=== PATIENT | female | born 1990 | race African-American/Black ===

== ENCOUNTER 2020-06-10 09:35 | Inpatient (IN) | payer BC ==
[~2020-06-10 09:35] MED LIST: BUTORPHANOL TARTRATE 2 MG/ML VIAL IVPB ONE; PROMETHAZINE HCL 25 MG/1 ML VIAL IVPB ONE
[2020-06-10] MEDS: ELECTROLYTE-148 SOLN 1,000 ML IV SCH ×2 (09:35→13:10)
[2020-06-10] MEDS ORDERED: AMPICILLIN - 2 GM in SODIUM CHLORIDE 100 ML IVPB ONE (10:00)
[2020-06-10] MEDS ORDERED: AMPICILLIN SODIUM 2 GM VIAL ONE (10:10)
[2020-06-10] MEDS ORDERED: SODIUM CHLORIDE 100 ML IVPB ONE (10:10)
[2020-06-10 10:30] LABS: BASO % 0.5 % (0-2.0); EOS % 0.6 % (0-4.5); HEMATOCRIT 39.6 % (32.4-45.2); HEMOGLOBIN 13.5 GM/dL (10.7-15.3); LYMPH % 14.4 % (8-40); MCH 30.2 pg (25.7-33.7); MEAN CELL VOLUME 88.8 fl (80-96); MEAN PLT VOLUME 10.3 fl (7.5-11.1); MONO % 4.4 % (3.8-10.2); NEUT % 80.1 % (42.8-82.8); PLATELET COUNT 219 K/MM3 (134-434); RBC 4.46 M/mm3 (3.60-5.2); RDW 14.7 % (11.6-15.6); WHITE BLOOD COUNT 9.2 K/mm3 (4.0-10.0)
[2020-06-10 10:36] LABS: INR 0.94 (0.83-1.09); PROTHROMBIN TIME (PATIENT) 11.4 SEC (9.7-13.0)
[2020-06-10 10:39] LABS: ACTIVATED PTT 29.2 SECONDS (25.2-36.5)
[2020-06-10 10:42] VITALS: BMI 31.8
[2020-06-10 10:56] LABS: BLOOD UREA NITROGEN 4.9 mg/dL (7-18); CALCIUM 9.1 mg/dL (8.5-10.1); CREATININE 0.8 mg/dL (0.55-1.3); POTASSIUM 3.9 mmol/L (3.5-5.1)
[2020-06-10] MEDS ORDERED: PROMETHAZINE HCL 25 MG/1 ML VIAL ONE (11:20)
[2020-06-10] MEDS ORDERED: BUTORPHANOL TARTRATE 2 MG/ML VIAL ONE (11:20)
--- NOTE | 2020-06-10 12:49 | PN ---
Progress Note (short form) - Note Progress Note: First baby, in labor. Patient has good variability but 2 episodes of bradycardia. On examination she is 3 cm, 50% effaced, -2. Category 2. Observe tracing. Good variability is reassuring. Do not start Pitocin. Attending notified by the RN.
[2020-06-10] MEDS ORDERED: ONDANSETRON 4 MG/2 ML VIAL IVPUSH PRN (13:17)
[2020-06-10] MEDS ORDERED: CITRIC ACID/SODIUM CITRATE 30 ML UNIT-DOSE CUP PO ONE (13:21)
[2020-06-10] MEDS ORDERED: ELECTROLYTE-148 SOLN 500 ML IV ONE (13:21)
[2020-06-10] MEDS ORDERED: METHYLERGONOVINE MALEATE 0.2 MG/1 ML AMP IM PRN (13:22)
[2020-06-10] MEDS ORDERED: SENNOSIDES/DOCUSATE COMBO (SENNA PLUS) TABLET (UD) PO PRN (13:22)
[2020-06-10] MEDS ORDERED: oxyCODONE HCL 5 MG TABLET PO PRN (13:22)
--- NOTE | 2020-06-10 13:26 | HP ---
Past Medical History - Admission Chief Complaint: labor pain History Source: Patient Limitations to Obtaining History: No Limitations - Past Medical History [facility]: No: Alzheimer's, CVA, Dementia, Migraine, Multiple Sclerosis, Peripheral Neuropathy, Parkinson's, Seizure, Syncope, TIA, Vertigo, Other Cardiovascular: No: AFIB, Aneurysm, Aortic Insufficiency, Aortic Stenosis, CAD, CHF, Deep Vein Thrombosis, HTN, Hyperlipdemia, TN, Mitral Insufficiency, Mitral Stenosis, Murmur, Pulmonary Hypertension, Other Pulmonary: No: Asthma, Bronchitis, Cancer, COPD, O2 Dependent, Pneumonia, Pr eviously Intubated, Pulmonary Embolus, Pulmonary Fibrosis, Sleep Apnea, Other Gastrointestinal: No: Ascites, Cancer, Constipation, Crohn's Disease, Diverticulitis, Diverticulosis, Esophageal Varices, Gastritis, GERD, GI Bleed, Hemorrhoids, Hiatal Hernia, Inflamatory Bowel Disease, Irritable Bowel Disease, Pancreatitis, Peptic Ulcer Disease, Ulcerative Colitis, Other Hepatobiliary: No: Cirrhosis, Cholelithiasis, Cholecystitis, Choledocholithiasis, Hepatitis A, Hepatitis B, Hepatitis C, Other Renal/: No: Renal Failure, Renal Inusuff, BPH, Cancer, Hematuria, Hemodialysis, Neurogenic Bladder, Renal Calculi, UTI, Other Reproductive: No: Ectopic , Endometriosis, Fibroids, PID, Polycystic Ovary Syndrome, Postmenopausal, Other ...: 1 ...Para: 0 ...EDC by Xiomara: 06/07/20 Heme/Onc: No: Anemia, B12 Deficiency, Bleeding Disorder, Cancer, Current Chemotherapy, Current Radiation Therapy, Hemochromatosis, Hypercoaguable State, Myeloproliferative Synd, Sickle Cell Disease, Sickle Cell Trait, Thrombocytopenia, Other Infectious Disease: No: AIDS, C-Diff, Herpes Zoster, HIV, MRSA, STD's, Tuberculosis, VREF, Other Psych: No: Addictions, Anxiety, Bipolar, Depression, Panic, Psychosis, Schizophrenia, Other Musculoskeletal: No: Bursitis, Chronic low back pain, Hemiparesis, Hemiplegia, Osteoarthritis, Paraplegia, Other Rheumatology: No: Fibromyalgia, Gout, Lupus, Rheumatoid Arthritis, Sarcoidosis, Vasculitis, Other ENT: No: Allergic Rhinitis, Sinusitis, Other Endocrine: No: Ariel's Disease, Daron's Disease, Diabetes Insipidus, Diabetes Mellitus, Hyperparathyroidism, Hyperthyroidism, Hypothyroidism, Osteopenia, SIADH, Other Dermatology: No: Basal Cell, Cellulitis, Eczema, Melanoma, Psoriasis, Squamous Cell, Other - Past Surgical History Past Surgical History: No: None, AAA Repair, AICD, Amputation, Appendectomy, Arthrosocopy, AV Fistula/Graft, Bariatric Surgery, Breast Biopsy, Bypass, CABG, Carotid Endarterectomy, Cataract Removal, Cholecystectomy, Colectomy, Colonoscopy, Colostomy, Craniotomy, , Cystectomy, Hernia Repair, Hysterectomy, Ileal Conduit, Ileosotomy, Joint Replacement, Kidney Transplant, Laminectomy, Liver Transplant, Mastectomy, Nephrectomy, Oopherectomy, Orchiectomy, Permanent Pacemaker, Prostatectomy, Splenectomy, Stent, Thor acotomy, TURP, Tonsillectomy, Tubal Ligation, Upper Endoscopy, Valve Replacement, Vasectomy, Vein Stripping/Ligation Hx Myomectomy: No Hx Transabdominal Cerclage: No - Advance Directives Advance Directives: Yes: Living Will - Smoking History Smoking history: Never smoked Have you smoked in the past 12 months: No - Alcohol/Substance Use Hx Alcohol Use: No History of Substance Use: reports: None - Social History Usual Living Arrangement: Yes: With Significant Other Do you think of yourself as: Straight/Heterosexual ADL: Independent History of Recent Travel: No Home Medications - Allergies Allergies/Adverse Reactions: Allergies Allergy/AdvReac Type Severity Reaction Status Date / Time No Known Allergies Allergy Verified 06/10/20 10:19 - Home Medications Home Medications: Ambulatory Orders Tablet 1 tab PO DAILY 06/10/20 Family Medical History Family History: Denies Review of Systems - Review of Systems Constitutional: reports: No Symptoms Eyes: reports: No Symptoms HENT: reports: No Symptoms Neck: reports: No Symptoms Cardiovascular: reports: No Symptoms Respiratory: reports: No Symptoms Gastrointestinal: reports: No Symptoms Genitourinary: reports: No Symptoms Breasts: reports: No Symptoms Reported Musculoskeletal: reports: No Symptoms Integumentary: reports: No Symptoms Neurological: reports: No Symptoms Endocrine: reports: No Symptoms Hematology/Lymphatic: reports: No Symptoms Psychiatric: reports: No Symptoms Physical Exam - Maternity Vital Signs: Vital Signs Temperature 98.3 F 06/10/20 09:35 Pulse Rate 86 06/10/20 11:54 Respiratory Rate 20 06/10/20 11:54 Blood Pressure 133/88 06/10/20 11:54 O2 Sat by Pulse Oximetry (%) Constitutional: Yes: Well Nourished, No Distress, Calm Eyes: Yes: WNL, Conjunctiva Clear, EOM Intact HENT: Yes: WNL, Atraumatic, Normocephalic Neck: Yes: WNL, Supple, Trachea Midline Cardiovascular: Yes: WNL, Regular Rate and Rhythm Lungs: Clear to auscultation Breast(s): Yes: WNL - Abdominal Exam/OB Number of Fetuses: Single Presentation: Vertex Contractions: Yes Regularity: Regular Intensity: Mod/Strong Monitor Mode: External Heart Rate (range): 150 Heart Rate Location: [facility] Accelerations: Uniform Decelerations: Prolonged - Vaginal Exam/OB Vaginal Bleeding: No Speculum Exam: No Dilatation (cm): 2 Effacement (%): 70 Amniotic Membrane Status: Intact Meconium: Light Presentation: Vertex/Position Station: -3 - Physical Exam Musculoskeletal: Yes: WNL Extremities: Yes: WNL Edema: Yes Integumentary: Yes: WNL Deep Tendon Reflex Grade: Normal +2 ...Motor Strength: WNL Psychiatric: Yes: WNL, Alert, Oriented - Labs Lab Results: CBC, BMP 06/10/20 10:15 06/10/20 10:15 Assessment/Plan for labor
[2020-06-10] MEDS ORDERED: morphine SULFATE/PF 0.5 MG/ML (2cc Syringe - QUVA) ONE (13:28)
[2020-06-10] MEDS ORDERED: ELECTROLYTE-148 SOLN 1,000 ML IV SCH (13:30)
[2020-06-10] MEDS ORDERED: PHENYLEPHRINE HCL 10 MG/1 ML SINGLE DOSE VIAL ONE (13:44)
[2020-06-10] MEDS ORDERED: ceFAZolin SODIUM 1 GM VIAL ONE (13:46)
[2020-06-10] MEDS ORDERED: AMPICILLIN - 1 GM in SODIUM CHLORIDE 100 ML IVPB SCH (14:00)
[2020-06-10] MEDS: OXYTOCIN 20 UNITS in 0.9% NS 20 UNIT/1,000 ML INFUS.BAG IV SCH (14:35)
--- NOTE | 2020-06-10 15:31 | PN ---
Progress Note (short form) - Note Progress Note: I assisted Dr. Gamboa at primary section for the entirety of the case.
[2020-06-10] MEDS ORDERED: IBUPROFEN 800 MG/8 ML IJ IVPB ONE (19:16)
[2020-06-10] MEDS: IBUPROFEN 800 MG/8 ML IJ IVPB PRN (19:25)
[2020-06-10] MEDS ORDERED: OXYTOCIN 20 UNITS in 0.9% NS 20 UNIT/1,000 ML INFUS.BAG IV ONE (21:13)
[2020-06-11] MEDS: IBUPROFEN 800 MG/8 ML IJ IVPB PRN (02:32)
[2020-06-11 08:05] LABS: BASO % 0.3 % (0-2.0); EOS % 0.5 % (0-4.5); HEMATOCRIT 34.3 % (32.4-45.2); HEMOGLOBIN 11.6 GM/dL (10.7-15.3); LYMPH % 14.3 % (8-40); MCH 29.8 pg (25.7-33.7); MCHC 33.7 g/dl (32.0-36.0); MEAN CELL VOLUME 88.4 fl (80-96); MEAN PLT VOLUME 10.1 fl (7.5-11.1); MONO % 6.3 % (3.8-10.2); NEUT % 78.6 % (42.8-82.8); PLATELET COUNT 190 K/MM3 (134-434); RBC 3.88 M/mm3 (3.60-5.2); RDW 14.7 % (11.6-15.6); WHITE BLOOD COUNT 10.9 K/mm3 (4.0-10.0)
[2020-06-11] MEDS: PRENATAL VITAMINS W/ FOLIC ACID TABLET (FP) PO SCH (09:32)
[2020-06-11] MEDS: ACETAMINOPHEN 325 MG TABLET (FP) PO PRN ×2 (11:35→19:17)
[2020-06-11] MEDS: IBUPROFEN 600 MG TABLET (FP) PO PRN ×2 (11:37→19:18)
[2020-06-11] MEDS: SIMETHICONE 80 MG TAB.CHEW (FP) PO PRN ×2 (11:37→19:19)
[2020-06-11] MEDS: oxyCODONE HCL 5 MG TABLET PO PRN (12:13)
[2020-06-11] MEDS ORDERED: BISACODYL 10 MG SUPP.RECT RC PRN (13:22)
[2020-06-11] MEDS: OXYTOCIN 20 UNITS in 0.9% NS 20 UNIT/1,000 ML INFUS.BAG IV SCH (14:57)
--- NOTE | 2020-06-11 17:16 | OP ---
Operative Note - Note: Operative Date: 06/10/20 Pre-Operative Diagnosis: non reassuring fht, Operation: primary lt c s Findings: mod meconium Post-Operative Diagnosis: Same as Pre-op Surgeon: Ronnell Gamboa Senior Software Project Manager: Jet Gonzalez Anesthesiologist/WOMEN SPECIALIST: Andre French Anesthesia: Spinal Estimated Blood Loss (mls): 500 (no complications ) Operative Report Dictated: Yes
[2020-06-12] MEDS: IBUPROFEN 600 MG TABLET (FP) PO PRN ×3 (03:11→14:53)
[2020-06-12] MEDS: oxyCODONE HCL 5 MG TABLET PO PRN ×2 (03:12→07:40)
[2020-06-12] MEDS: SIMETHICONE 80 MG TAB.CHEW (FP) PO PRN (07:41)
[2020-06-12] MEDS: PRENATAL VITAMINS W/ FOLIC ACID TABLET (FP) PO SCH (10:29)
[2020-06-12 11:19] VITALS: BP 132/88; PULSE 82; TEMP 98.4
--- NOTE | 2020-06-12 11:59 | OP ---
DATE OF OPERATION: 06/10/2020 PREOPERATIVE DIAGNOSIS: Nonreassuring heart rate tracing. POSTOPERATIVE DIAGNOSIS: Moderate meconium. PROCEDURE: Primary low transverse section. SURGEON: Sasha Gamboa MD KST OPERATOR: Jet Gonzalez MD ANESTHESIOLOGIST: ANESTHESIA: Spinal anesthesia. INDICATION: This is a 29-year-old female patient, 40 weeks and 3 days , came into the hospital in labor and carter every 3-5 minutes, and patient out of control in labor, and the patient was only 1-2 cm, so patient was admitted, and the patient was given IV hydration. After hydration, patient was given IV Stadol medication. Then after about 2 hours later patient started having decelerations. After deceleration and the patient recovered; however, patient had another deceleration, then the deceleration recovered. This was variable deceleration, and third one would be a prolonged deceleration of more than 2 minutes. Patient at this time was resuscitated again and baby heartbeat recovered. The patient's cervix at this time was checked and was still 2-3 cm opening only, head still very high, -3 position, so decision was made again at this time for the patient for because of prolonged deceleration and remote from delivery, and patient's heartbeat and variability is minimum variability, so decision was made. So patient was prepped for the . Patient was taken to OR for primary low transverse section. DESCRIPTION OF PROCEDURE: Patient was placed on operating table in supine position after spinal anesthesia was obtained. The patient's abdomen and pelvis were prepped and draped in the usual sterile manner. Pfannenstiel incision was made. Incision was made through skin and subcutaneous tissue into the fascia and nicked in the midline. Fascia extended bilaterally. Intraperitoneal cavity was entered, and no bladder flap was created. Low transverse segment was entered, baby delivered from LOT position. There was moderate to thick meconium. The baby was handed over to clin nurse spec. After umbilical cord doubly clamped and cut, placenta was removed. Uterus closed in single layer, first layer interlocking Vicryl sutures. Good hemostasis. Both gutters cleaned. Both ovaries, fallopian tubes, and uterus were within normal limits. No complication. Tolerated the procedure well, draining clear urine. Blood loss was about 500 mL. The peritoneum was closed, fascia was closed. SASHAMD ODELL FLOREZ/[id number]
--- NOTE | 2020-06-12 14:53 | PN ---
Post Progress Note Post Day: 2 Type of Delivery: Primary C/S Vital Signs: Vital Signs Temperature 98.4 F 06/12/20 10:00 Pulse Rate 82 06/12/20 10:00 Respiratory Rate 18 06/12/20 10:00 Blood Pressure 132/88 06/12/20 10:00 O2 Sat by Pulse Oximetry (%) 99 06/12/20 10:00 Breast Exam: Yes: Soft Uterus: Yes: Fundus Firm, Fundus below umbilicus, Non-tender Incision: Yes: Dressing dry and intact, Sutures intact Abdomen/GI: Yes: Abdomen soft, Passing flatus, Tolerating PO Lochia: Yes: Serosa Lochia, amount: Small Extremities: Yes: Calves non-tender Perineum: Yes: Intact Activity: Ambulating (dc pt home tomorrow ) - Labs Labs: CBC WBC 10.9 K/mm3 (4.0-10.0) H 06/11/20 07:32 RBC 3.88 M/mm3 (3.60-5.2) 06/11/20 07:32 Hgb 11.6 GM/dL (10.7-15.3) 06/11/20 07:32 Hct 34.3 % (32.4-45.2) 06/11/20 07:32 MCV 88.4 fl (80-96) 06/11/20 07:32 MCH 29.8 pg (25.7-33.7) 06/11/20 07:32 MCHC 33.7 g/dl (32.0-36.0) 06/11/20 07:32 RDW 14.7 % (11.6-15.6) 06/11/20 07:32 Plt Count 190 K/MM3 (134-434) 06/11/20 07:32 MPV 10.1 fl (7.5-11.1) 06/11/20 07:32 Absolute Neuts (auto) 8.6 K/mm3 (1.5-8.0) H 06/11/20 07:32 Neutrophils % 78.6 % (42.8-82.8) 06/11/20 07:32 Lymphocytes % 14.3 % (8-40) 06/11/20 07:32 Monocytes % 6.3 % (3.8-10.2) 06/11/20 07:32 Eosinophils % 0.5 % (0-4.5) 06/11/20 07:32 Basophils % 0.3 % (0-2.0) 06/11/20 07:32 Nucleated RBC % 0 % (0-0) 06/11/20 07:32
[2020-06-12] MEDS: ACETAMINOPHEN 325 MG TABLET (FP) PO PRN (14:54)
--- NOTE | 2020-06-12 14:55 | DS ---
Physical Exam-BILINGUAL HR GENERALIST Vital Signs: Vital Signs Temperature 98.4 F 06/12/20 10:00 Pulse Rate 82 06/12/20 10:00 Respiratory Rate 18 06/12/20 10:00 Blood Pressure 132/88 06/12/20 10:00 O2 Sat by Pulse Oximetry (%) 99 06/12/20 10:00 Constitutional: Yes: Well Nourished, No Distress, Calm Eyes: Yes: WNL, Conjunctiva Clear, EOM Intact HENT: Yes: WNL, Atraumatic, Normocephalic Neck: Yes: WNL, Supple, Trachea Midline Cardiovascular: Yes: WNL, Regular Rate and Rhythm Respiratory: Yes: WNL, Regular, CTA Bilaterally Gastrointestinal: Yes: WNL, Normal Bowel Sounds, Soft ...Rectal Exam: Yes: WNL Renal/: Yes: WNL Pelvis: Yes: WNL External Genitalia: Yes: Normal Internal Exam Deferred: Yes Vaginal Exam: Yes: Normal Cervix: Yes: Normal Uterus: Yes: Normal ....Post : Yes: Uterus firm, Uterus non-tender Breast(s): Yes: WNL Musculoskeletal: Yes: WNL Extremities: Yes: WNL Edema: Yes Integumentary: Yes: WNL Wound/Incision: Yes: Clean/Dry, Well Approximated Neurological: Yes: WNL, Alert, Oriented ...Motor Strength: WNL Psychiatric: Yes: WNL, Alert, Oriented Labs: CBC, BMP 06/11/20 07:32 06/10/20 10:15 Delivery - Delivery Section: Primary Type of Anesthesia: Spinal Episiotomy/Laceration: None EBL (cc): 500 Delivery, Single - Stages of Labor Date 1st Stage Initiatied: 06/10/20 Time 1st Stage Initiated: 07:00 Date of Delivery: 06/10/20 Time of Delivery: 13:54 Time Placenta Delivered: 13:55 - Condition of Field Crop Grower/Counter Dish Carrier Present: Yes Name: Brandy Maguire Infant Gender: Male Weight: 3.317 kg Total Hours ROM (Hrs/Mins): 0/01 - 1 Minute Total Score: 9 5 Minutes Total Score: 9 - [place] Feeding Plan Initial Plan: Elected not to breastfeed exclusively throughout hospitalization Discharge Summary Problems reviewed: Yes Reason For Visit: LABOR ADMISSION Procedures: Principal: primary lt c s Other Procedures: none Condition: Good - Instructions Diet, Activity, Other Instructions: Physical activity Resume your normal everyday activity as tolerated no heavy lifting or exercise until seen by your surgeon. You may walk unlimited philippe of and climb stairs. You may resume driving the car when you feel safe and comfortable behind the wheel. No sexual activity as instructed. Wound care If you have a bandage, leave it on, and keep dry for 48-72 hours. After that time discard the outer bandage. If they are tapes on the skin under the out of bandage leave them in place. They will peel off in the next 7 to 10 days. Do Not Peel them off. You may shower the day after surgery. If there are tapes present on the skin, you may shower over them. Diet There are no dietary restrictions. Eat healthy, high-fiber foods. Drink 6 to 8 glasses of liquid each day. This will assist in keeping your bowels are regular. Pain management You may take Tylenol or acetaminophen or Ibuprofen (for example, Motrin, Advil etc.) from my pain prescription medication is ordered should be taken as prescribed for moderate to severe pain. Call MD for any of the following:call d rpan for 2 weeks appoint Severe pain not relieved by medication Fever of 101 or higher Excessive bleeding or drainage on dressing Inability to urinate Disposition: HOME - Home Medications Comprehensive Discharge Medication List: Ambulatory Orders Tablet 1 tab PO DAILY 06/10/20 Prescription Drug Monitoring Program (I-STOP) results: I-STOP reviewed and no i ssues identified
[2020-06-12] MEDS: OXYTOCIN 20 UNITS in 0.9% NS 20 UNIT/1,000 ML INFUS.BAG IV SCH (16:14)
--- NOTE | 2020-06-17 15:35 | PATH ---
Surgical Pathology Report Patient Name: MELANIE ORTEGA Med. Rec. #: [id number] /Age/Gender: 1990 (Age: 29) / F Account: [id number] Location: [facility] OBS/ASSISTANT SITE MANAGER Taken: 06/10/2020 Received: 06/11/2020 Reported: 06/17/2020 Physicians: Ronnell Gamboa MD Specimen(s) Received PLACENTA Clinical History , primary Final Diagnosis PLACENTA: THIRD TRIMESTER PLACENTA WITH FOCAL INCREASED PERIVILLOUS FIBRIN DEPOSITION. TRIVASCULAR CORD. MEMBRANES WITH NO DIAGNOSTIC ABNORMALITIES. Electronically Signed Ravin Trinh M.D. Gross Description The specimen is received fresh labeled placenta and is a 390 gram, 17.0 x 16.0 x 2.8 cm. placenta with attached membranes and umbilical cord. The attached membranes are castaneda, translucent with focal opacities and insert marginally. The umbilical cord measures 33 cm. in length and averages 1 cm. in diameter. The cord inserts eccentrically, 3 cm. to the nearest margin. No true knots or strictures are identified. Cut surface of the umbilical cord reveals 3 vessels. The surface is bender-blue with minimal fibrin deposition and appropriate caliber vessels. The maternal surface is red-brown with focal defects. Sectioning reveals red-brown, spongy parenchyma. No lesions are identified. Manager Testing sections are submitted in three cassettes as follows: 1- membrane rolls and umbilical cord; 2-3- full thickness sections of placenta. /06/15/2020 saudi/06/15/2020
== END 2020-06-12 16:25 | disposition home or self-care (01) | DRG 788 ==
LOC: JLDR 09:35 → J3W 21:24
PROVIDERS: ADMIT Obstetrics & Gynecology; ATTEND Obstetrics & Gynecology
PROC: 10D00Z1 Extraction of Products of Conception, Low, Open Approach (ICD-10-PCS; principal; 2020-06-10)
DX: O76 Abnormality in fetal heart rate and rhythm complicating labor and delivery (principal); O48.0 Post-term pregnancy; O77.0 Labor and delivery complicated by meconium in amniotic fluid; D57.3 Sickle-cell trait; Z3A.40 40 weeks gestation of pregnancy; Z37.0 Single live birth
CPT/HCPCS: 36415; 80048; 85025; 85610; 85730; 86780; 86850; 86900; 86901; 87389; 88307-TC; C9803; U0003